=== PATIENT | male | born 1945 | race Asian ===

== ENCOUNTER 2020-06-23 14:29 | Emergency (ER) | payer OTHER ==
[~2020-06-23] VITALS: Ht 170.2 cm; Wt 80.3 kg
[2020-06-23 16:46] VITALS: BP 169/94; TEMP 98.6
== END 2020-06-23 16:46 | disposition home or self-care (01) ==
LOC: ED 14:29
DX: S02.2XXA Fracture of nasal bones, initial encounter for closed fracture (principal); V49.40XA Driver injured in collision with unspecified motor vehicles in traffic accident, initial encounter; Y92.89 Other specified places as the place of occurrence of the external cause
CPT/HCPCS: 96372; 99283; J0696; J1885